=== PATIENT | female | born 1960 | race Caucasian/White ===

== ENCOUNTER 2020-11-04 14:10 | Inpatient (IN) | payer OTHER ==
[~2020-11-04] VITALS: Ht 167.6 cm; Wt 149.7 kg
--- NOTE | ~2020-11-04 | HC ---
[facility] [place] [address] CONSULTATION Name: LUI MITCHELL Room #: 457-P ADM IN M.R.#: [id number] Admission: 11/04/20 Attend Phys: Woody Morales Discharge: Date of : 56 Report #: [id number] THIS REPORT FOR: cc: Sean Mello MD, Richard C. MD Stephens, Thad A. MD ~ DATE OF SERVICE: 11/05/2020 WOUND CARE CONSULTATION PERSONAL PHYSICIAN: Dr. Sean Mello. CHIEF COMPLAINT: Bilateral lower extremity edema with gluteal ulcerations. HISTORY OF PRESENT ILLNESS: This is a 60-year-old white female who was recently left a skilled facility 3 days ago and was found by her son to be on the floor for the past 3 days covered in her own urine and feces, was brought to the Emergency Department to be admitted. The patient states now she has chronic lower extremity lymphedema and has been having therapy wrap her legs three times weekly. The patient states wraps were done approximately 4 days ago. The patient denies any open ulcerations recently. The patient states that over approximately 3 or 4 months ago, she did have weeping ulcers that were resolved after Dakin's moist gauze was used with compression wraps. The patient states she does also have 2 gluteal ulcers which have been present for several days do cause some minimal pain, but did feel better once the foam dressings are in place. The patient denies any other associated wounds at this time. PAST MEDICAL HISTORY: Significant for diabetes mellitus, chronic kidney disease, neuropathy, morbid obesity, chronic lymphedema. CURRENT MEDICATIONS: Multiple. DRUG ALLERGIES: SULFA, MORPHINE, METFORMIN AND LATEX. SOCIAL HISTORY: The patient does not smoke or drink alcohol. FAMILY HISTORY: Not pertinent to current medical condition. REVIEW OF SYSTEMS: CONSTITUTIONAL: The patient denies fevers or chills. NEUROLOGIC: The patient denies numbness, tingling, weakness in arms or legs. Does have generalized weakness. EYES: No complaints. EARS, NOSE AND THROAT: No complaints. CARDIAC: The patient has chronic lower extremity lymphedema, but no chest pain or palpitations. [facility] [address] [place] [address] CONSULTATION Name: LUI MITCHELL Room #: 457-P [facility] IN M.R.#: [id number] Admission: 11/04/20 Attend Phys: Woody Morales Discharge: Date of : 56 Report #: [id number] RESPIRATORY: The patient denies shortness of breath, cough, wheezes. GASTROINTESTINAL: The patient denies nausea, vomiting or abdominal pain. GENITOURINARY: The patient denies urgency or frequency. Fernandez catheter is in place. MUSCULOSKELETAL: No complaints. SKIN: There is bilateral gluteal ulcers. PHYSICAL EXAMINATION: VITAL SIGNS: Temperature 36.7, pulse 92, respirations 19, BP 175/88. GENERAL: This is alert and oriented x3. Morbidly obese white female who is in no acute distress. HEENT: Normocephalic, atraumatic. Mucous membranes are somewhat dry. Pupils are round. Sclerae white. NECK: Without JVD. LUNGS: Clear. HEART: Regular. ABDOMEN: Obese, soft, nontender. Underneath the abdominal pannus, there is a fungal rash with mild excoriation. Evaluation of gluteal region in the superior aspect, there are 2 small approximately 1 x 1 cm stage III decubitus ulcer, which are otherwise clean and granulating without signs of overt infection. There is minimal serosanguineous drainage noted without odor. Periwound is intact. There is no tunneling or undermining. EXTREMITIES: Evaluation of lower extremity reveals 3 to 4+ edema without weeping. There is significant hyperkeratosis to bilateral lower extremities. Distal pulses are 1+ dorsalis pedis and posterior tibial. Bilateral heels are intact. NEUROLOGIC: Cranial nerves II-XII grossly intact. Motor and sensory grossly intact. LABORATORY DATA: White count 6.8, hemoglobin 10.8, BUN 33, creatinine 1.6, albumin 2.2. IMPRESSION: 1. Chronic bilateral lower extremity lymphedema with hyperkeratosis, but no open ulcerations. 2. Stage III pressure ulcers to bilateral superior gluteal region. 3. Fungal rash beneath the abdominal pannus. 4. Type 2 diabetes mellitus. 5. Morbid obesity. 6. Generalized weakness. 7. Severe protein-calorie malnutrition with albumin of 2.2. PLAN: We will start AmLactin, Kerlix and Sai from the toes to knees daily and p.r.n. The patient to elevate her legs as much as possible. We will use heel protectors on the patient at all times for prevention. Given the fact the [address] [address] CONSULTATION Name: LUI MITCHELL Room #: 457-P ADM IN M.R.#: [id number] Admission: 11/04/20 Attend Phys: Woody Morales Discharge: Date of : 56 Report #: [id number] patient feels the bordered foam dressings have helped with her pain, she will keep those in place at this time. We will put the patient on low air loss surface, have her turned every 2 hours. We will have InterDry dressings placed beneath the abdominal pannus. PT and OT will be consulted for generalized weakness and strengthening. We will make sure we maximize the patient's oral protein supplementation for healing. We will continue all other current medications. Appreciate ability to consult. By: 1311 [id number] Erick Fonseca MD /nedra
[2020-11-04 14:11] VITALS: BP 163/73
[2020-11-04 14:48] LABS: ABSOLUTE NEUTROPHILS 5.9 thou/uL (1.4-8.2); BASOPHILS 0.7 % (0.0-2.0); EOSINOPHILS 14.3 % (0.0-3.0); HEMATOCRIT 34.6 % (37.0-47.0); HEMOGLOBIN 10.7 gm/dL (12.0-15.0); MCH 28.2 pg (26.0-34.0); MCV 91.1 fL (80.0-100.0); MONOCYTES 5.8 % (1.0-8.0); PLATELET COUNT 264 thou/uL (150-400); POLYS 65.2 % (36.0-66.0); RBC 3.79 mil/uL (4.20-5.00); RDW 16.5 % (10.5-14.5)
[2020-11-04 15:15] LABS: ALBUMIN 1.3 g/dL (3.4-5.0); ANION GAP 12 mmol/L (7-16); BUN 22 mg/dL (7-18); CHLORIDE 122 mmol/L (98-107); CO2 16 mmol/L (21-32); SGOT 17 U/L (15-37); SGPT 7 U/L (14-59); SODIUM 150 mmol/L (136-145); TOTAL BILIRUBIN 0.2 mg/dL (0.2-1.0); TOTAL PROTEIN 4.1 g/dL (6.4-8.2); TROPONIN-I <0.06 ng/mL (<0.06)
[2020-11-04 15:25] LABS: POTASSIUM 2.2 mmol/L (3.5-5.1)
[2020-11-04 15:26] LABS: GLUCOSE 39 mg/dL (74-106)
[2020-11-04 15:27] LABS: CALCIUM 5.1 mg/dL (8.5-10.1)
[2020-11-04 17:00] VITALS: BP 159/64
[2020-11-04 17:01] LABS: URINE BILIRUBIN NEGATIVE (Negative); URINE BLOOD NEGATIVE (Negative); URINE CLARITY CLEAR; URINE COLOR YELLOW; URINE GLUCOSE-RANDOM* NEGATIVE (Negative); URINE KETONES NEGATIVE (Negative); URINE LEUKOCYTES-REFLEX NEGATIVE (Negative); URINE NITRITE-REFLEX NEGATIVE (Negative); URINE PROTEIN (DIPSTICK) NEGATIVE (Negative); URINE UROBILINOGEN 0.2 E.U./dl (0.2-1.0)
--- NOTE | 2020-11-04 17:04 | NUR ---
ATTEMPTED TO CALL PT REPORT AT THIS TIME
[2020-11-04 17:29] LABS: BE(vivo) 1.3 mmol/L (-2 to +3); HCO3 25.9 mmol/L (22.0-26.0); PO2 75.9 mmHg (80.0-100.0); pH 7.419 (7.360-7.450); sO2 95.4 % (92.0-98.0)
--- NOTE | 2020-11-04 19:00 | NUR ---
Pt admitted under telemetry. Vegetable Harvest Worker notified. Vegetable Harvest Worker states no tele beds available at the moment. States provider aware and ok with patient being on this floor until tele bed becomes available later tonight.
[2020-11-04 19:32] VITALS: BP 136/64
[2020-11-04] MEDS ORDERED: GABAPENTIN PO (23:18)
[2020-11-04] MEDS ORDERED: NORCO 10-325 T1 EACH PO (23:20)
[2020-11-04] MEDS ORDERED: FLEXERIL PO (23:20)
[2020-11-04] MEDS ORDERED: LEVO-T100 MCG PO (23:21)
[2020-11-05 02:06] LABS: GLYCOHEMOGLOBIN (HGB A1C) 6.4 % (4.8-5.6)
--- NOTE | 2020-11-05 05:46 | NUR ---
Pt transferred from appropx 1999 via bed. A/OX4,VSS. Max assist with transfers/cares. C/o pain to left shoulder/arm as well as back. Has pressure sores on buttocks,very excoriated under pannus/breasts;GUILLOTINE TRIMMER Cande notified. Order for Nystatin powder. Fernandez patent to DD with yellow urine noted;states she has been incontinent of bowels lately since being hospitalized at [facility]. Fall precautions in place,encouraged to call for help as needed. SR on telemetry.
[2020-11-05 06:03] LABS: HEMOGLOBIN 10.8 gm/dL (12.0-15.0); MCHC 32.6 g/dL (28.0-37.0); RBC 3.71 mil/uL (4.20-5.00); RDW 15.4 % (10.5-14.5); WBC 6.8 thou/uL (4.0-11.0)
[2020-11-05 06:22] LABS: CALCIUM 8.4 mg/dL (8.5-10.1); CREATININE 1.6 mg/dL (0.6-1.0); POTASSIUM 5.2 mmol/L (3.5-5.1)
[2020-11-05 06:25] LABS: ALBUMIN 2.2 g/dL (3.4-5.0); MAGNESIUM 2.2 mg/dL (1.8-2.4); PHOSPHORUS 3.7 mg/dL (2.5-4.9)
[2020-11-05 07:23] VITALS: BP 175/88
[2020-11-05] MEDS ORDERED: ASA81BEC PO (07:49)
[2020-11-05] MEDS ORDERED: VITAMIN D3 COM1 EACH PO (07:51)
[2020-11-05] MEDS ORDERED: LISINOPRIL2.5 MG PO (07:52)
[2020-11-05] MEDS ORDERED: BENADRYL25 MG PO (07:53)
[2020-11-05] MEDS ORDERED: ZOFRAN4 MG PO (07:55)
--- NOTE | 2020-11-05 08:26 | NUR ---
TRANSFERRED PT TO 4W AT APPROXIMATELY 2000.
--- NOTE | 2020-11-05 09:53 | EKG ---
[place] [address] [employer] [place] [address] ELECTROCARDIOGRAM REPORT Name: MITCH MITCHELLLUI Room #: 457-P ADM IN M.R.#: [id number] Admission: 11/04/20 Attend Phys: Woody Morales Discharge: Date of : 56 Report #: [id number] [facility] Test Date: 2020-11-04 Test Time: 19:01:00 Pat Name: LUI MITCHELL Department: Room: [facility] Gender: F Adult Education Manager: FSCHWALNELL : 1960 Requested By: Fabiola Keating Order Number: [id number] MD: Lukasz Salamanca Measurements Intervals [place] Rate: 94 P: ME: QRS: 17 QRSD: 148 T: -39 QT: 410 QTc: 513 Interpretive Statements Sinus rhythm Right bundle branch block No previous ECG available for comparison Electronically Signed On 11-05-2020 9:53:19 CDT by Lukasz Salamanca [email or web address] <ELECTRONICALLY SIGNED> By: Lukasz Salamanca MD, [facility] 11/05/20 0953 1901 00 Lukasz Salamanca MD, FACC /EPI
--- NOTE | 2020-11-05 09:58 | NUR ---
RD consult. Admitted with infected wounds, buttocks and excoriation and cellulitis bilateral lower extremities. Extreme class III obesity, BMI 53.3, and hx dm, kidney cancer. A1C 6.4. On carb controlled diet, has no teeth. Poor vision so requires assist with menu ordering. Food preferences obtained. Pt with strong dislike of all oral supplements, "want to eat my protein." States allergy to all artificial sweetners. Low nutrition risk
--- NOTE | 2020-11-05 12:30 | NUR ---
PT ADMITTED RELATED TO HYPOGLYCEMIA. CM REVIEWED CHART AND SPOKE WITH CARE TEAM. CM MET WITH PT AT BEDSIDE THIS DAY. PT APPEARS TO BE A&O X4. CM ROLE INTRODUCED. PT INDICATED THAT SHE RESIDES IN A DOUBLE WIDE TRAILER WITH HER TWO SONS WITH A RAMP TO ENTER. PT INDICATED THAT SHE HAD STARTED HH SERVICES WITH [facility] HOME TUMOR REGISTRAR. PT INDICATED THAT SHE HAD BEEN AT [facility] AND HAD GONE TO [facility] AND HAD BEEN THERE UP UNTIL 3 DAYS PRIOR ADMISSION HERE. PT INDICATED SHE HAD BEEN ABLE TO TRANSFER HERSELF PRIOR TO HOSPITALIZATION TO AND FROM LIFT CHARIR, POWER CHAIR, TOILER, AND COMMODE. PT INDICATED SHE HAD ASSISTED WITH CHORES IN THE HOME. PT NOT ABLE TO BEAR WEIGHT NOW. PT NOT WANTING TO GO TO SKILLED BUT WANTING TO RETURN HOME WITH [facility] HH ONCE MEDICALLY STABLE. CM INDICATED THAT PT THAT HOSPITALIST HAD INDICATED THAT PT WOULD LIKELY BE MEDICALLY STABLE TO DC HOME WITH HH TOMORROW AND PT INDICATED THAT THE OT STATED THAT SHE WOULD SEE HER SUNDAY.. CM INDICATED CM WOULD REACH OUT TO [facility] AND INFORM THEM OF HER DESIRE TO RESUME SERVICES UPON DC. CM FOLLOWING REGARDING DC PLANNING.
--- NOTE | 2020-11-05 15:31 | NUR ---
BP 175/88 @ 0723 WITH NO BP medications on emar. She takes Lisinpril 2.5 mg @ home nurse spoke with DR. Morales. Lisinpril 2.5 mg added to mar and given. D5W d/c. BS 309 for breakfast, 369 for lunch. Sliding scale insulin given. Left arm 3+ edema and prop on pillow. PT/OT evaluated today.
[2020-11-05 15:33] VITALS: BP 138/77
--- NOTE | 2020-11-05 15:43 | NUR ---
CM FAXED CLINICAL UPDATED TO [facility] THEY ARE ABLE TO ACCEPT PT BACK UPON DC P: F: . PT WORKED WITH PT AND SHE INDICATED SHE WAS RECEPTIVE TO SKILLED POST ACUTE CARE STAY. CM PROVIDED [facility] SNF LIST FOR REVIEW. SHE INDICATED SHE NEEDED TO LOOK IT OVER WITH HER SONS. CM FOLLOWING REGARDING DC PLANNING
--- NOTE | 2020-11-05 19:36 | NUR ---
Patient has critical gram postive blood culture results for cocci in clusters in both bottles . Results called to Karine Lemon NP @ 1930. She said she will review her chart.
[2020-11-05 20:39] VITALS: BP 157/78
[2020-11-06 06:12] LABS: HEMATOCRIT 28.9 % (37.0-47.0); HEMOGLOBIN 9.2 gm/dL (12.0-15.0); MCH 28.4 pg (26.0-34.0); MCHC 31.8 g/dL (28.0-37.0); MCV 89.3 fL (80.0-100.0); RBC 3.24 mil/uL (4.20-5.00); RDW 15.5 % (10.5-14.5); WBC 7.8 thou/uL (4.0-11.0)
[2020-11-06 06:36] LABS: ALBUMIN 2.1 g/dL (3.4-5.0); CALCIUM 8.3 mg/dL (8.5-10.1); CREATININE 1.5 mg/dL (0.6-1.0); PHOSPHORUS 2.5 mg/dL (2.5-4.9); POTASSIUM 4.4 mmol/L (3.5-5.1)
[2020-11-06 07:55] VITALS: BP 151/76
--- NOTE | 2020-11-06 08:07 | NUR ---
Assumed pt care at 1900. A/OX4,pleasant. C/o pain to left shoulder,medicated per EMAR with some relief reported,ice provided as well. VSS. New PIV inserted on right hand with 2 attempts,IVF infusing w/o problems. Wound care done to pannus/breasts interdry fabric applied. Fernandez in place to DD with yellow urine/sediments. Fall precautions in place,calls approp for help. NSR on telemtry.
--- NOTE | 2020-11-06 08:30 | NUR ---
PT LYING IN BED AT THIS TIME. PT BED BOUND. PT NEEDS ASSISTANCE WITH OPENING ITEMS ON HER TRAY, PT STATED HER SON CHEO 07/02/20 DUE TO TUMOR IN HIS BRAIN, SHE SAID HE HAD SOME SWELLING TO HIS BRAIN, PT STATED SHE HAS 4 BOYS, HER YOUNGEST BOY TAKES CARE OF HER AT HOME. PT HAS CESAR TO DD WITH CLEAR YELLOW URINE. PT HAS BILATERAL WRAPS TO EXT DUE TO SWELLING. PT STATED SHE HAS CELLULITIS TO LEFT ARM. PT TELE IS SR RATE OF 77. PT STATED SHE WAS AT [facility] IN [place] AND SHE WAS NOT PROGRESSING AND WAS SENT HOME. PT STATED SHE WAS AT [facility] AND WAS THERE 3 DAYS, SHE SAID THEY DIDN'T DO ANYTHING TO HELP HER. PT SAID SHE ENDED UP HERE. PT STATED SHE WAS ON LASIX AND DIDN'T NOW WHY SHE WAS OFF. PT WEIGHT THIS AM IS 330.6 SHE SAID HER WT HAS NOT DECREASED.
--- NOTE | 2020-11-06 14:53 | NUR ---
ADM HYDROCODONE 5MG PO FOR PAIN TO LEFT ARM AND ALSO FLEXERIL 10MG PO FOR COMPLAINTS OF MUSCLE SPASMS TO LEFT ARM. ELEVATED ARM ON PILLOWS.
[2020-11-06 17:47] VITALS: BP 157/76
[2020-11-06 19:00] VITALS: BP 164/77
--- NOTE | 2020-11-07 01:12 | NUR ---
PT ALERT AND ORIENTED X4. VSS, AFEBRILE. MEDICATING FOR C/O LEFT UPPER EXTREMITY PAIN PRN. WOUND CARE COMPLETED TO L AND R LE AND L AND R BUTTOCKS. ORDERED. BED DOWN CALL LIGHT IN REACH. NO S/S DISTRESS.CALL LIGHT IN REACH BED ALARM ON. NOTIFIED SILK FINISHER AUDI OF HEMATURIA NOTED IN 2500 ML IN CESAR. HELD LOVENOX TONIGHT ORDERED. WILL HAVE DAY SHIFT NS ADDRESS WITH IN AM REQUESTED BY SILK FINISHER. WILL CONTINUE TO MONITOR PT FOR CHANGES,
[2020-11-07 05:32] VITALS: BP 162/90
--- NOTE | 2020-11-07 06:07 | NUR ---
PT PROGRESINGSLOWLY TOWARDS D/C GOALS. BP MODERTELY ELEVTED. NOTIFIED SPACE SYSTEMS OPERATIONS MANAGER. DAY SHIFT DR TO ADDRESS BP .
--- NOTE | 2020-11-07 06:08 | NUR ---
PT C/O LEFT ARM PAIN AGAIN THIS AM . IT IS ELEVATED ON 2 PILLOW. PAIN PILL GIVEN. SHEIS RESTING QUIETLY PRESENTLY. NO S/S DISTRESS.
[2020-11-07 06:19] LABS: ALBUMIN 2.2 g/dL (3.4-5.0); CALCIUM 8.3 mg/dL (8.5-10.1); CREATININE 1.2 mg/dL (0.6-1.0); PHOSPHORUS 2.5 mg/dL (2.5-4.9); POTASSIUM 4.1 mmol/L (3.5-5.1)
[2020-11-07 07:23] VITALS: BP 169/85
--- NOTE | 2020-11-07 12:25 | NUR ---
ASSUMED PT CARE THIS AM. PT A&OX3, ABLE TO MAKE NEEDS KNOWN. IV BECAME INFILTRATED SO NEW IV STARTED WITH IV TEAM USING ULTRASOUND. MEDICATIONS TAKEN PO AND IV WITHOUT ISSUE.PATIENT HAS EDEMA NOTED TO THE LEFT ARM, ELEVATED THIS ARM IN BED. PATIENT HAS A CESAR CATHETER DRAINING DARK YELLOW URINE. PATIENT REFUSED WOUND CARE TO HER GLUTEAL WOUNDS. WOUND CARE COMPLETED TO BILATERAL LOWER EXTREMETIES. PATIENT COMPLAINS OF PAIN IN THE LEFT ARM, GAVE PAIN MEDS PER EMAR. PATIENT IS ON A LOW AIRLOSS MATTRESS. FALL PRECAUTIONS ARE IN PLACE, CALL LIGHT WITHIN REACH.
[2020-11-07 15:48] VITALS: BP 166/74
[2020-11-07 20:21] VITALS: BP 166/78
--- NOTE | 2020-11-08 02:33 | NUR ---
PT CARE ASSSUMED at 1900 PT IN BED WATCHING TV.PT IS ON BEDREST .PT IS A/O X3.PT IS INCONTINENT AND HAS A CESAR CATHETER IN PLACE.PT C/O PAIN ON LT UE AND PAIN MANAGED WITH NORCO.PT C/O PAIN AND ASKED TO SIT AT BEDSIDE AND SHE CALMED DOWN.PT HAS LYPHEDEMA WRAP ON BLE IN PLACE.WILL CONTINUE TO MONITOR PER POC
[2020-11-08 07:19] VITALS: BP 178/87
--- NOTE | 2020-11-08 13:53 | NUR ---
CM MET WITH PT AT BEDSIDE THIS DAY. PT WASN'T COMMITAL TO SKILLED OF YET. PT INDICATED SHE WANTED TO SEE HOW SHE DID WITH THERAPY AND MAY STILL DECIDE TO RETURN HOME WITH HH. CM INDICATED THAT'S FINE BUT IF IN THE EVENT PT DECIDES ON GOING SKILLED WE NEED TO SEND SOME INFO TO SNFS FOR REVIEW FOR POSSIBLE ADMISSION. PT WAS AGREEABLE TO HAVING REFERRAL SENT TO [facility]. REFERRAL SENT. CM FOLLOWING REGARDING DC PLANNING.
--- NOTE | 2020-11-08 15:52 | NUR ---
ASSUMED CARE OF PT AT 0700 THIS MORNING. PT WAS ADMITTED FOR HYPOGLYCEMIA, CELLULITIS AND LYMPHADEMIA IN THE LT ARM. PT HAS PITTING EDEMA IN LT ARM FROM MIDHUMORUS TO FINGERS AND BILAT LEGS. LEGS ARE WRAPPED WITH JHONATAN WRAPS WITH KERLEX AND ABD PADS. LT ARM IS ELEVATED. CESAR IN PLACE WITH CLEAR YELLOW URINE. ABD OBESE, SOFT NONTENDER. ASSESSMENTS CHARTED AND OTHERWISE UNREMARKABLE. IV IN RT FA WITH SL. CALL LIGHT AND OTHER NEEDS ARE WITHIN REACH.MEDS AND TX GIVEN NEEDED AND SCHEDULED. WILL CONTINUE TO MONITOR AND NOTE ANY CHANGES.
[2020-11-08 16:39] VITALS: BP 184/92
[2020-11-08 19:51] VITALS: BP 187/105
[2020-11-08 23:30] VITALS: BP 177/80
[2020-11-09 02:51] LABS: HEMOGLOBIN 10.6 gm/dL (12.0-15.0); MCH 28.7 pg (26.0-34.0); MCV 86.9 fL (80.0-100.0); RBC 3.68 mil/uL (4.20-5.00); RDW 15.7 % (10.5-14.5); WBC 8.2 thou/uL (4.0-11.0)
[2020-11-09 03:17] LABS: CALCIUM 8.5 mg/dL (8.5-10.1); CREATININE 1.1 mg/dL (0.6-1.0); POTASSIUM 3.5 mmol/L (3.5-5.1)
[2020-11-09 04:50] VITALS: BP 186/92
--- NOTE | 2020-11-09 05:48 | NUR ---
PT C/O LEFT ARM AND BACK PAIN. PRN HYDROCODONE GIVEN. PT HAD 2 BOWEL MOVEMENTS DURING THE NIGHT. SHE REFUSED TURNS. BP ELEVATED. NOTIFIED SHIPPING ROOM SUPERVISOR SWITCH ADJUSTER FOR HOSPITALIST. PRN HYDRALAZINE GIVEN FOR HTN. PROGRESSING SLOWLY TOWARD POC GOALS. WILL MONITOR FURTHER.
--- NOTE | 2020-11-09 14:53 | NUR ---
ASSUMED PT CARE THIS AM. PT A&OX3-4, ABLE TO MAKE NEEDS KNOWN. PATIENT CAN BE FORGETFUL OF SITUATION. PATIENT WOUND CARE WAS COMPLETED BY NURSE AND OT COMPLETED LYMPHEDEMA WRAPS TO BILATERAL LOWER EXTREMETIES. PATIENT HAS A CESAR CATHETER. PHYSICIAN ORDERED AN ULTRASOUND OF THE LEFT ARM THIS SHIFT DUE TO SWELLING AND THE PATIENT HAVING DIFFICULTY MOVING IT. NEW IV PLACED BY IV TEAM THIS SHIFT. FALL PRECAUTIONS ARE IN PLACE, CALL LIGHT WITHIN REACH. PATIENT REPORTS ABDOMINAL CRAMPS AND NAUSEA, GAVE ZOFRAN AND PAIN MEDS PER EMAR. PHYSICIAN NOTIFIED OF THIS ISSUE, NO NEW ORDERS RECEIVED.
[2020-11-09 16:39] VITALS: BP 197/91
--- NOTE | 2020-11-09 16:52 | NUR ---
[facility] HAS NO BEDS. CM FAXED REFERRAL TO [facility] FOR REVIEW FOR POSSIBLE ADMISSION.
[2020-11-09 21:34] VITALS: BP 197/68
[2020-11-10 03:15] VITALS: BP 208/115
--- NOTE | 2020-11-10 03:20 | NUR ---
ASSUMED PT CARE AT 1920. PT IS ALERT AND OREINTED X4. PT C/O GENERALIZED ABD PAIN WHICH PT CLAIMED STARTED AFTER GETTING MIRALAX. PT CLAIMS CURRENT PRN PAIN MEDS ARE NOTE EFFCETIVE AND WOULD LIKE SOMETHING STRONGER. PT'S BP HAS BEEN IN THE 190'S AND BY PT" BP HAS BEEN HIGH SINCE THE OF SON IN AUGUST". PT HAS KERLIX ON BLE WHICH IS D/I. PT HAS A CESAR IN PLACE. PT HAD A BM. FALL PRECAUTIONS IN PLACE WITH CALL LIGHT WITHIN REACH. WILL CONTINUE TO MONITOR.
--- NOTE | 2020-11-10 14:10 | NUR ---
BEAU IN ADMISSIONS AT [facility] INDICATED THAT THEY CAN ACCPET PT MEDICLLY. CM NOTIFIED PT THIS AM. SHE INDICATED SHE WAS STILL WAITING TO HEAR BACK FROM HER FRIEND OBIE OR HER CUTTER OPERATOR TILE. CM ASKED THAT SHE TRY TO SPEAK TO THEM CHERYL WE NEED TO FIND PLACEMENT. CM AWAITING PT'S DETERMINATION.
[2020-11-10 16:10] VITALS: BP 141/79
--- NOTE | 2020-11-10 16:40 | NUR ---
ASSUMED CARE OF PATIENT AT SHIFT CHANGE. ASSESSMENT CHARTED. MEDICATIONS ADMINISTERED PER JUN W NO ISSUES. PATIENT IS A&OX4 AND MAKES NEEDS KNOWN. PATIENT VOICES DISCOMFORT AND AN OVERALL FEELING OF MALAISE. PATIENT STATES "THE MIRALAX SHE TOOK THE OTHER DAY MESSED ME UP" AND VOICES NOT BEING INCONTINENT PRIOR TO TAKING THE MIRALAX. PROVIDER IS AWARE AND PROVIDED PATIENT EDUCATION ON LETTING THE MIRALAX RUN ITS COURSE OUT OF HER SYSTEM. PATIENT GIVEN PAIN MEDS PROVIDING SOME RELIEF TO HER GENERALIZED AND ABDOMINAL PAIN. PATIENT IS BEING REPOSITIONED AT LEAST EVERY 2 HOURS TOLERATED & NEEDED. CESAR IN PLACE AND PATENT. DISCHARGE DATE SOON; HOWEVER PATIENT DOES NOT FEEL SHE IS READY. POOR APPETITE NOTED HOWVEVER FSBS REMAIN ELEVATED. FALL PRECAUTIONS IN PLACE. AWAITING NEW ORDERS AND PROVIDING FREQUENT MONITORING
[2020-11-10 20:02] VITALS: BP 110/56
--- NOTE | 2020-11-11 03:10 | NUR ---
PT CARE ASSUMED WITH PT IN BED WATCHING TV.PT IS A/O X4.PT IS BEDREST AND CALLS OUT FOR HELP APPRIOPRIETELY.IV ACCESS IN RFA SL.PT IS ACCUCHECK ACHS .PT C/O ABD PAIN AND LT HAND PAIN.PT HAD A BM DURING SHIFT.PT HAS A CESAR IN PLACE.WILL CONTINUE TO MONITOR
[2020-11-11 08:08] VITALS: BP 154/75
--- NOTE | 2020-11-11 16:38 | NUR ---
Spoke with pt today, main concern is the visiting policy [facility]. Pt will need to quaratine in her room for 14 days, but they allow 2 visitors per day for 30 minute visits in her room, this has to be scheduled since pt is a new admit. Relayed this to the pt she was ok with this but expressed another concern regarding the possibility that her income may be taken away. Request sent to facility awaiting auth.
[2020-11-11 17:07] VITALS: BP 150/67
--- NOTE | 2020-11-11 17:47 | NUR ---
FAXED SNF REFERRAL WITH NEGATIVE COVID RESULT (11/04/20) TO [facility]. WILL CONFIRM THEY RECEIVED AND BED AVAILABILITY. [facility] P [phone]; FAX [phone]
--- NOTE | 2020-11-11 18:34 | NUR ---
Patient has had pain most the day in her left arm/hand. [place] given 3x today for pain. Reji Pabon Dr. came and mesured her left hand and arm to be fitted for a sleeve. He has to order it and is aware she will d/c to [facility] and send it there if shes no longer here. Bilateral legs- ammonium appiled.
[2020-11-11 19:23] VITALS: BP 157/71
--- NOTE | 2020-11-12 06:43 | NUR ---
Assumed pt care at 1900. A/OX4,VSS. C/o pain to left arm,medicated for pain with relief reported,arm immobilized with a pillow;arm is swollen and warm to touch. Fernandez in place with dark yellow urine,poor PO intake encouraged but hesitant to. Fall precautions in place.
[2020-11-12 07:51] VITALS: BP 152/61
--- NOTE | 2020-11-12 09:48 | NUR ---
SPOKE TO SANA/LIAISON AT [facility]. THEY WILL NOT HAVE ANY BEDS UNTIL NEXT WEEK. WILL NOTIFY GEOVANI/SHAPER HAND OF STATUS AND OTHER FACILITIES.
--- NOTE | 2020-11-12 11:05 | NUR ---
Patient A/O x 4. Room air. Bed Bound. 3+ edema in left hand/arm. Pain noted in left arm 09/23. [place] given @ 0835. Intradry placed under pannus and bilateral breasts. Refused breakfast, she only wanted crackers. Fernandez patent-urine is dark lidia and foul smelling. OT worked with her this morning.
--- NOTE | 2020-11-12 11:21 | NUR ---
Spoke to pt today, informed her that [facility] at this time does not have beds. Option for [facility] was give, pt refuses to go due to visitor policy of the facility. Mentioned that dc is planned for today of [facility] is not an option pt will have to go home. Pt state she will call her sons for "ideas". Will follow up with the pt in an hour for final decision.
--- NOTE | 2020-11-12 12:05 | NUR ---
Nutrition followup: pt continues on , followed by wound care. Gluteal wounds listed as stage 3. Pt had been eating well up until last 2 days po has declined. Offered to assist pt with meal ordering, food preferences. states nothing sounds good. Still not willing to try supplements. Understands protein needs. RD offered strong encouragement to pt to push self, proteins first etc. Voiced understanding. Awaiting insurance authorization for likely discharge today.
--- NOTE | 2020-11-12 12:14 | NUR ---
Nutrition: Recommend daily MVI, zinc sulfate, ascorbic acid to assist with wound healing.
[2020-11-12 14:54] VITALS: BP 152/69
[2020-11-12] MEDS ORDERED: NORVASC10 MG PO (15:42)
[2020-11-12] MEDS ORDERED: LISINOPRIL20 MG PO (15:43)
[2020-11-12] MEDS ORDERED: LANTUS SUBQ (15:44)
[2020-11-12 16:46] VITALS: BP 152/69
--- NOTE | 2020-11-12 16:59 | NUR ---
FAXED DISCHARGE ORDERS, SUMMARY, PT/OT PROGRESS NOTES (11/12) AND NEGATIVE COVID RESULT (11/04/20) TO [facility]. CONFIRMED WITH KATE/SA[facility] THAT PATIENT HAD SERVICES WITH THEM BEFORE AND HAVE ACCEPTED AND WILL PROVIDE NURSING, OT/PT SERVICES. THEY WILL CONTACT PATIENT THIS WEEKEND TO SCHEDULE. [facility] P [phone]; FAX [phone]
--- NOTE | 2020-11-12 17:19 | NUR ---
Mayra visited with Nani via phone call, verified she has no stairs at home, and someone will be there to help her when she gets home. Will need stretcher bariatric, van r/t unable to support self in wheelchair. She c/o of pain during phone call, mayra passed on information to bedside nurse. Spoke with [facility], 1st avaible transportation time will be between 9-10pm. MAYRA passed on time to bedside nurse. If her dc changes for any reason, please call and canceled transportation # [phone]
--- NOTE | 2020-11-13 02:03 | NUR ---
PATIENT LEFT AROUND 2029 ACCOMPANIED BY TWO DRIVERS.PATIENT LEFT VIA [facility]. HOME MEDS GIVEN TO THE PATIENT FROM THE PHARMACY. HS MED GIVEN. PAIN MEDS GIVEN PER DRS. PAVON.DISCHARGE PAPER WORK GIVEN.PER REPORT OFF GOING NURSE DID DISCHARGE TEACHING. THIS NURSE ALSO DID DISCHARGE TEACHING AND PATIENT WAS EDDUCATED TO MAKE AN APPOINTMENT TO SEE PCP AND WENT THROUGH HOME MEDS, PATIENT IS FAMILIAR WITH ALL HER HOME MEDS.
--- NOTE | 2020-11-13 07:51 | NUR ---
FAXED UPDATED DISCHARGE ORDERS, SUMMARY AND WOUND CARE PROGRESS NOTES TO [facility]. (ORGINAL ORDERS DID NOT HAVE ORDER FOR HOME HEALTH.) CONTACTED DEWEY (SON) VERIFYING TIME PATIENT TO BE DISCHARGED AND THAT THERE WILL BE SOMEONE AT THE HOUSE. SON STATED HE WOULD BE THERE AND AN OLDER BROTHER. CONCERNED HIS MOTHER MAY NEED JACK FRAME TENDER CARE EVENTUALLY BECAUSE THEY WERE NOT ABLE TO CARE FOR ALL OF HER NEEDS. DISCUSSED WITH ELECTRIC MOTORMAN. [facility] P [phone]; FAX [phone]
== END 2020-11-12 20:30 | disposition home health service (06) | DRG 917 ==
LOC: ER 14:10 → 4W 17:50 → EROBS 17:50 → 4S 17:57 → 4W 21:00
PROVIDERS: Hospitalist; Nurse Practitioner Family; ADMIT Hospitalist; ATTEND Hospitalist
DX: T38.3X1A Poisoning by insulin and oral hypoglycemic [antidiabetic] drugs, accidental (unintentional), initial encounter (principal); L89.323 Pressure ulcer of left buttock, stage 3; L89.313 Pressure ulcer of right buttock, stage 3; E43 Unspecified severe protein-calorie malnutrition; B37.89 Other sites of candidiasis; Z68.43 Body mass index [BMI] 50.0-59.9, adult; E11.649 Type 2 diabetes mellitus with hypoglycemia without coma; E66.01 Morbid (severe) obesity due to excess calories; Z20.822 Contact with and (suspected) exposure to COVID-19; E11.40 Type 2 diabetes mellitus with diabetic neuropathy, unspecified; M19.90 Unspecified osteoarthritis, unspecified site; E87.6 Hypokalemia; E83.51 Hypocalcemia; N18.9 Chronic kidney disease, unspecified; E11.22 Type 2 diabetes mellitus with diabetic chronic kidney disease; I12.9 Hypertensive chronic kidney disease with stage 1 through stage 4 chronic kidney disease, or unspecified chronic kidney disease; I89.0 Lymphedema, not elsewhere classified; L85.9 Epidermal thickening, unspecified; H16.423 Pannus (corneal), bilateral; R53.81 Other malaise; Z79.899 Other long term (current) drug therapy; Z88.2 Allergy status to sulfonamides; Z88.8 Allergy status to other drugs, medicaments and biological substances; Z88.6 Allergy status to analgesic agent; Z91.040 Latex allergy status; Y92.89 Other specified places as the place of occurrence of the external cause
CPT/HCPCS: 10045

== ENCOUNTER 2020-11-18 14:15 | Inpatient (IN) | payer OTHER ==
[~2020-11-18] VITALS: Ht 167.6 cm; Wt 132.6 kg
--- NOTE | ~2020-11-18 | EMS ---
[address] [address] EMS Patient Care Report Name: LUI MITCHELL Room #: 245-P ADM IN M.R.#: [id number] Admission: 11/18/20 Attend Phys: Karthikeyan Sheikh MD Discharge: Date of : 56 Report #: [id number] THIS REPORT FOR: //name// Report Transmitted: 11/19/2020 08:39 EMS Care Summary [facility] Incident [id number] @ 11/18/2020 13:20 Incident Location [address] [place] [address] Patient GAYE MITCHELL Female, 60 Years 1960 Patient Address [address] [place] [address] Patient History Diabetes,Urinary Tract Infection (UTI),Chronic Pain, Patient Allergies Latex allergy,Sulfonamides allergy,Morphine,Metformin, Patient Medications Cyclobenzaprine, Amlodipine, Aspirin, Hydrocodone, Lantus, Levothyroxine, Benadryl, Lisinopril, Chief Complaint confusion Disposition Transported No Lights/[place] Reason Sick Person Transported To [facility] Narrative Medic 43 met with Archie Brady on scene of a patient with confusion. Patient was alert to self and place but was unable to give definitive answers to other questions. Patient was assessed by Archie prior to [facility] arrival and [address] [address] EMS Patient Care Report Name: LUI MITCHELL Room #: 245-P [facility] IN ..#: [id number] Admission: 11/18/20 Attend Phys: Karthikeyan Sheikh MD Discharge: Date of : 56 Report #: [id number] found patient sinus tach on monitor, BP normal and chronic back pain. Patient was recently in hospital and had an IV infiltrate in right arm, right arm was painful to the touch and movement. A CCSS was performed with no findings, patient did not have facial droop or slurred speech, was unable to fully complete the stroke scale due to right arm pain and lower extremity weakness and immobility. Patient was in a hospital type bed in home residence. Patient has bandages on both lower legs to help with swelling, patients feet had toenail fungus on all toes bilateral. Patient was reassessed with no new findings with vitals. Patient was placed onto the stretcher with a drawl sheet, patient was secured with straps for transport. Stretcher was loaded into ambulance and secured, all moves were done without incident. Patient was monitored during transport with no additional findings to report. Verbal report was given to RN during patient care transfer for MD assessment. Initial Vitals @13:43P: 116,R: 20,BP: 139/64,Pain: 4/10,GCS: 14,SpO2: 96,Revised Trauma: 12,[place] Suspected: false @13:56P: 121,R: 19,BP: 123/88,Pain: 4/10,GCS: 14,SpO2: 95,Revised Trauma: 12,IL Suspected: false @PTAP: 110,R: 20,BP: 117/55,Pain: 4/10,GCS: 14,Glucose: 112,SpO2: 96,Revised Trauma: 12,[place] Suspected: false Assessments @13:31MENTAL:Place Oriented,Person Oriented,Confused,SKIN:Diaphoresis,HEENT:Head/Face: No Abnormalities,Neck/Airway: No Abnormalities,LUNG SOUNDS:General: Other,ABDOMEN:General: Other,PELVIS//GI:No Abnormalities,EXTREMITIES:Capillary Refill: Right Upper: < 2 Sec,Right Leg: Weakness,Left Leg: Weakness,Left Arm: Other,Right Arm: No Abnormalities,PULSE:Radial: 2+ Normal,NEURO:No Abnormalities,@13:50MENTAL:Person Oriented,Confused,Place Oriented,SKIN:Diaphoresis,HEENT:Head/Face: No Abnormalities,Neck/Airway: No Abnormalities,LUNG SOUNDS:General: Other,ABDOMEN:General: Other,PELVIS//GI:No Abnormalities,EXTREMITIES:Left Arm: Other,Left Leg: Weakness,Right Leg: Weakness,Capillary Refill: Right Upper: < 2 Sec,Right Arm: No Abnormalities,PULSE:Radial: 2+ Normal,NEURO:No Abnormalities, Impression Urinary Tract Infection (UTI) Procedures @13:31ALS AssessmentResponse: UnchangedSucceeded@13:32Saline Lock 0cc (24 ga) Site: Hand-RightResponse: UnchangedFailed@13:423-Lead ECGResponse: [place] [address] EMS Patient Care Report Name: OLGA MITCHELLLINE Room #: 245-P ADM IN M.R.#: [id number] Admission: 11/18/20 Attend Phys: Karthikeyan Sheikh MD Discharge: Date of : 56 Report #: [id number] 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 This EMS Care Summary contains data elements from the applicable legal record (which may be displayed differently). It is designed to provide pertinent information for the following purposes: continuity of care, clinical quality, and state data reporting. The complete legal record is available to ED staff and administrators of the receiving hospital in ES's Patient Tracker. All data is provided "as is."
--- NOTE | ~2020-11-18 | EMS ---
[address] [address] EMS Patient Care Report Name: LUI MITCHELL Room #: 459-P [facility] IN M.R.#: [id number] Admission: 11/18/20 Attend Phys: Karthikeyan Sheikh MD Discharge: 11/25/20 Date of : 56 Report #: [id number] THIS REPORT FOR: //name// Report Transmitted: 11/27/2020 19:20 EMS Care Summary [facility] Incident [id number] @ 11/18/2020 13:20 Incident Location [address] [place] [address] Patient GAYE MITCHELL Female, 60 Years 1960 Patient Address [address] [place] [address] Patient History Diabetes,Urinary Tract Infection (UTI),Chronic Pain, Patient Allergies Latex allergy,Sulfonamides allergy,Morphine,Metformin, Patient Medications Cyclobenzaprine, Amlodipine, Aspirin, Hydrocodone, Lantus, Levothyroxine, Benadryl, Lisinopril, Chief Complaint confusion Disposition Transported No Lights/[place] Reason Sick Person Transported To [facility] Narrative Medic 43 met with Archie Brady on scene of a patient with confusion. Patient was alert to self and place but was unable to give definitive answers to other questions. Patient was assessed by Archie prior to [facility] arrival and [address] [address] EMS Patient Care Report Name: LUI MITCHELL Room #: 459-P [facility] IN M.R.#: [id number] Admission: 11/18/20 Attend Phys: Karthikeyan Sheikh MD Discharge: 11/25/20 Date of : 56 Report #: [id number] found patient sinus tach on monitor, BP normal and chronic back pain. Patient was recently in hospital and had an IV infiltrate in right arm, right arm was painful to the touch and movement. A CCSS was performed with no findings, patient did not have facial droop or slurred speech, was unable to fully complete the stroke scale due to right arm pain and lower extremity weakness and immobility. Patient was in a hospital type bed in home residence. Patient has bandages on both lower legs to help with swelling, patients feet had toenail fungus on all toes bilateral. Patient was reassessed with no new findings with vitals. Patient was placed onto the stretcher with a drawl sheet, patient was secured with straps for transport. Stretcher was loaded into ambulance and secured, all moves were done without incident. Patient was monitored during transport with no additional findings to report. Verbal report was given to RN during patient care transfer for MD assessment. Initial Vitals @13:43P: 116,R: 20,BP: 139/64,Pain: 4/10,GCS: 14,SpO2: 96,Revised Trauma: 12,[place] Suspected: false @13:56P: 121,R: 19,BP: 123/88,Pain: 4/10,GCS: 14,SpO2: 95,Revised Trauma: 12,[place] Suspected: false @PTAP: 110,R: 20,BP: 117/55,Pain: 4/10,GCS: 14,Glucose: 112,SpO2: 96,Revised Trauma: 12,[place] Suspected: false Assessments @13:31MENTAL:Confused,Person Oriented,Place Oriented,SKIN:Diaphoresis,HEENT:Head/Face: No Abnormalities,Neck/Airway: No Abnormalities,LUNG SOUNDS:General: Other,ABDOMEN:General: Other,PELVIS//GI:No Abnormalities,EXTREMITIES:Left Arm: Other,Left Leg: Weakness,Right Leg: Weakness,Capillary Refill: Right Upper: < 2 Sec,Right Arm: No Abnormalities,PULSE:Radial: 2+ Normal,NEURO:No Abnormalities,@13:50MENTAL:Confused,Person Oriented,Place Oriented,SKIN:Diaphoresis,HEENT:Head/Face: No Abnormalities,Neck/Airway: No Abnormalities,LUNG SOUNDS:General: Other,ABDOMEN:General: Other,PELVIS//GI:No Abnormalities,EXTREMITIES:Left Arm: Other,Left Leg: Weakness,Right Leg: Weakness,Capillary Refill: Right Upper: < 2 Sec,Right Arm: No Abnormalities,PULSE:Radial: 2+ Normal,NEURO:No Abnormalities, Impression Urinary Tract Infection (UTI) Procedures @13:31ALS AssessmentResponse: UnchangedSucceeded@13:32Saline Lock 0cc (24 ga) Site: Hand-RightResponse: UnchangedFailed@13:423-Lead ECGResponse: UnchangedSucceeded Timeline [address] [address] EMS Patient Care Report Name: OLGA MITCHELLLINE Room #: 459-P DIS IN M.R.#: [id number] Admission: 11/18/20 Attend Phys: Karthikeyan Sheikh MD Discharge: 11/25/20 Date of : 56 Report #: [id number] 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,BP: 117/55 M,PULSE: 110,RR: 20 R,SPO2: 96 Ox,ETCO2: ,B,PAIN: 4,GCS: 14, 13:19,Call Received 13:19,Psap Call 13:20,Dispatched 13:21,En Route 13:30,On Scene 13:31,At Patient 13:31,ALS Assessment,Response: UnchangedSucceeded, 13:32,Saline Lock 0cc 24 ga Site: Hand-Right,Response: UnchangedFailed, 13:42,3-Lead ECG,Response: UnchangedSucceeded, 13:43,BP: 139/64 M,PULSE: 116,RR: 20 R,SPO2: 96 Ox,ETCO2: ,BG: ,PAIN: 4,GCS: 14, 13:47,Depart Scene 13:56,BP: 123/88 M,PULSE: 121,RR: 19 R,SPO2: 95 Ox,ETCO2: ,BG: ,PAIN: 4,GCS: 14, 14:05,At Destination 14:43,Call Closed Disclaimer v1.1 Copyright 2020 [employer] This EMS Care Summary contains data elements from the applicable legal record (which may be displayed differently). It is designed to provide pertinent information for the following purposes: continuity of care, clinical quality, and state data reporting. The complete legal record is available to ED staff and administrators of the receiving hospital in ES's Patient Tracker. All data is provided "as is."
[~2020-11-18 14:15] MED LIST: ASA81BEC PO; BENADRYL25 MG PO; FLEXERIL PO; GABAPENTIN PO; LANTUS SUBQ; LEVO-T100 MCG PO; LISINOPRIL2.5 MG PO; LISINOPRIL20 MG PO; NORCO 10-325 T1 EACH PO; NORVASC10 MG PO; VITAMIN D3 COM1 EACH PO; ZOFRAN4 MG PO
[2020-11-18 14:16] VITALS: BP 94/47
--- NOTE | 2020-11-18 14:45 | NUR ---
IV TEAM AT BEDSIDE
[2020-11-18 15:06] LABS: ABSOLUTE NEUTROPHILS 7.3 thou/uL (1.4-8.2); BASOPHILS 0.7 % (0.0-2.0); EOSINOPHILS 4.4 % (0.0-3.0); HEMATOCRIT 32.7 % (37.0-47.0); HEMOGLOBIN 10.7 gm/dL (12.0-15.0); LYMPHOCYTES 8.1 % (24.0-44.0); MCH 28.7 pg (26.0-34.0); MCHC 32.7 g/dL (28.0-37.0); MONOCYTES 5.4 % (1.0-8.0); PLATELET COUNT 444 thou/uL (150-400); POLYS 81.4 % (36.0-66.0); RBC 3.71 mil/uL (4.20-5.00); RDW 16.3 % (10.5-14.5)
[2020-11-18 15:17] LABS: ANION GAP 13 mmol/L (7-16); BUN 79 mg/dL (7-18); CALCIUM 8.8 mg/dL (8.5-10.1); CHLORIDE 98 mmol/L (98-107); CO2 23 mmol/L (21-32); CREATININE 7.6 mg/dL (0.6-1.0); GLUCOSE 71 mg/dL (74-106); POTASSIUM 4.2 mmol/L (3.5-5.1); SODIUM 134 mmol/L (136-145)
[2020-11-18 15:27] LABS: SGOT 22 U/L (15-37); SGPT 20 U/L (30-65); TOTAL PROTEIN 7.2 g/dL (6.4-8.2); TROPONIN-I <0.06 ng/mL (<0.06)
[2020-11-18 16:54] LABS: AMP/METHAMP Negative (Negative); BARBITURATES Negative (Negative); BENZODIAZEPINES Negative (Negative); COCAINE Negative (Negative); METHADONE Negative (Negative); OPIATES POSITIVE (Negative); PCP Negative (Negative)
--- NOTE | 2020-11-18 20:07 | EKG ---
[place] [address] [facility] [place] [address] ELECTROCARDIOGRAM REPORT Name: LUI MITCHELL Room #: 170-2 ADM IN M.R.#: [id number] Admission: 11/18/20 Attend Phys: Karthikeyan Sheikh MD Discharge: Date of : 56 Report #: [id number] [facility] ED Test Date: 2020-11-18 Test Time: 15:04:02 Pat Name: LUI MITCHELL Department: Room: 170 Gender: F Estimator Project Manager: kasey : 1960 Requested By: Manuela Ludwig Order Number: [id number] MD: Lukasz Salamanca Measurements Intervals [place] Rate: 113 P: 43 [place]: 142 QRS: 25 QRSD: 140 T: -27 QT: 370 QTc: 508 Interpretive Statements Sinus tachycardia Right bundle branch block Baseline wander in lead(s) V2 Compared to ECG 11/04/2020 19:01:00 Rate has increased Electronically Signed On 11-18-2020 20:06:57 CDT by Lukasz Salamanca [email or web address] <ELECTRONICALLY SIGNED> By: Lukasz Salamanca MD, [facility] 11/18/202005 1504 1504 Lukasz Salamanca MD, [facility] /EPI
[2020-11-18 20:30] LABS: URINE BILIRUBIN NEGATIVE (Negative); URINE BLOOD 3+ (Negative); URINE GLUCOSE-RANDOM* NEGATIVE (Negative); URINE KETONES 1+ (Negative); URINE NITRITE-REFLEX NEGATIVE (Negative); URINE PROTEIN (DIPSTICK) 2+ (Negative); URINE SPECIFIC GRAVITY 1.025 (1.005-1.035); URINE UROBILINOGEN 0.2 E.U./dl (0.2-1.0)
[2020-11-18 20:31] LABS: URINE LEUKOCYTES-REFLEX 3+ (Negative)
[2020-11-18 20:32] LABS: URINE COLOR YELLOW
[2020-11-18 20:33] LABS: URINE CLARITY TURBID
[2020-11-18 20:47] LABS: SQUAMOUS 0-3 Few /LPF (0-3); URINE WBC-REFLEX >25 Many /HPF (0-5)
[2020-11-18 20:49] LABS: BACTERIA-REFLEX >30 Many /HPF (None Seen)
[2020-11-18 20:50] LABS: URINE RBC 1-2 Rare /HPF (NONE SEEN)
[2020-11-18 21:03] VITALS: BP 103/47
--- NOTE | 2020-11-18 22:08 | NUR ---
HAND OFF SENT TO ICU AT THIS TIME
[2020-11-19] VITALS (31 sets, daily range): BP systolic 106–193; BP diastolic 49–89
[2020-11-19 06:27] LABS: ABSOLUTE NEUTROPHILS 6.3 thou/uL (1.4-8.2); BASOPHILS 0.8 % (0.0-2.0); EOSINOPHILS 1.7 % (0.0-3.0); HEMATOCRIT 32.8 % (37.0-47.0); HEMOGLOBIN 10.2 gm/dL (12.0-15.0); LYMPHOCYTES 10.5 % (24.0-44.0); MCH 27.8 pg (26.0-34.0); MCHC 31.2 g/dL (28.0-37.0); MCV 89.2 fL (80.0-100.0); MONOCYTES 9.6 % (1.0-8.0); POLYS 77.4 % (36.0-66.0); RBC 3.68 mil/uL (4.20-5.00); RDW 16.4 % (10.5-14.5); WBC 8.2 thou/uL (4.0-11.0)
[2020-11-19 06:41] LABS: ALBUMIN 1.6 g/dL (3.4-5.0); CALCIUM 8.5 mg/dL (8.5-10.1); MAGNESIUM 1.7 mg/dL (1.8-2.4); PHOSPHORUS 5.4 mg/dL (2.6-4.7); PLATELET COUNT 361 thou/uL (150-400); POTASSIUM 4.8 mmol/L (3.5-5.1)
[2020-11-19 06:42] LABS: CREATININE 5.5 mg/dL (0.6-1.0)
--- NOTE | 2020-11-19 14:01 | NUR ---
2 RN'S TREATED PT'S HEAD WITH ANTI-LICE SHAMPOO. HAIR WAS COMBED WITH SPECIAL COMB. UNDERNEATH TREATED HOWEVER VERY MATTED TO BACK OF HEAD AND UNABLE TO GET LARGE SECTION OF UNDERNEATH PART OF HAIR COMBED THROUGH. PT MAY NEED SECOND TREATMENT IF EGGS STILL REMAIN. RN ONLY OBSERVED 2 LOUSE AND A MODERATE AMOUNT OF EGGS.
--- NOTE | 2020-11-19 16:16 | NUR ---
Chart review. Discussed during los and am unite rounds. Isolation for lice. DX Acute renal failure. Patient was just dc home with kelechi last week. Last admit was encouraged to go skilled rehab and she refused facilities. Francis She lives at home in mobile home with her 2 son, older son works outside home 6-5 and his younger brother is home and i tell him if need anything to call home health. ever since other brother , and the put her in wheelchair she has not walked. Have ramp, wheelchair, lift recliner chair. She is afraid she will end up in a shelter. We can't take care of her at home, but she will say we can per son Tobi. Cm tried calling pt. in room, unable to leave message r/t mailbox is full. Therapy will need to eval. Will cont. following as needed for dc needs. No anticipated dc over the weekend.
--- NOTE | 2020-11-19 19:14 | NUR ---
PICTURES TAKEN OF PT'S WOUNDS AND PLACED ON CHART. WOUND CARE ORDERS RECEIVED AND SUPPLIES IN ROOM. RN HELD OFF ON WRAPPING LEGS UNTIL NEW ORDER OF VENOUS DOPPLER BLE IS COMPLETED. HEELS OFF BED ON PILLOWS AT THIS TIME. RN SPOKE TO PT'S SON AND GAVE HIM PT UPDATE VIA PHONE.
--- NOTE | 2020-11-19 22:00 | NUR ---
PATIENT TRANSFERRED TO . REMAINS IN ISOLATION. BP CONTROLLED, NO NEED FOR LEVOPHED GTT. ALL BELONGINGS SENT.
[2020-11-20 03:30] VITALS: BP 149/61
--- NOTE | 2020-11-20 04:50 | NUR ---
ASSUMED CARE OF PT DROM ICU AT 2200HRS. PT IS AOX4 AND LETS NEEDS BE KNOWN. FALL PRECAUTION IN PLACE. PT REPORTED GENERALIZED PAIN THAT WAS POORLY CONTROLLED WITH AVAILABLE PRNS. CESAR IN PLACE AND PATIENT. PT SLEPT VERY LITTLE THIS SHIFT. WILL CONTINUE TO MONITOR.
[2020-11-20 06:12] LABS: ALBUMIN 1.6 g/dL (3.4-5.0); CALCIUM 8.5 mg/dL (8.5-10.1); PHOSPHORUS 2.4 mg/dL (2.5-4.9)
[2020-11-20 06:13] LABS: CREATININE 2.4 mg/dL (0.6-1.0); POTASSIUM 3.5 mmol/L (3.5-5.1)
[2020-11-20 08:50] VITALS: BP 179/77
[2020-11-20 15:10] VITALS: BP 169/78
--- NOTE | 2020-11-20 17:10 | NUR ---
ASSUMED CARE OF PATIENT AT SHIFT CHANGE. ASSESSMENT CHARTED. MEDICATIONS ADMINISTERED PER EMAR. BP ELEVATED; RELATED TO PAIN & ANXIETY. PATIENT IS A&0X3-4 WITH SOME NOTED FORGETFULNESS AND CONFUSION THROUGHOUT SHIFT. PATIENT WAS SEEN BY PT/OT BUT DID NOT PARTICIPATE FULLY DUE TO UNCONTROLLED PAIN. PATIENT RECIEVED A DOPPLER ULTRASOUND OF LE & WAS REPEATEDLY TOLD LEGS WOULD BE REDRESSED HOWVWEVER PATIENT REFUSED DUE TO PAIN. PATIENT NOW ABLE TO RECIEVE PRN PAIN MEDICATION Q4 HOURS BUT STILL VOICING NO RELIEF. PATIENT STATING SHE IS "MISERABLE" AND "CAN'T GET COMFORTABLE" EVEN AFTER NURSING STAFF REPEATEDLY REPOSITIONS PATIENT. WHEN PATIENT CLEANED UP; HEMMORHOID BECAME IRRITATED AND PATIENT BEGAN TO BLEED A SMALL AMOUNT WITH STOOL; THIS CAUSED PATIENT TO BECOME MORE ANXIOUS. RENAL US ALSO COMPLETED THIS DAY; SEE NOTES. SON UPDATED ON PATIENT STATUS; REPLACING FLUIDS AND CHECKING KIDNEY FUNCTION. ON IV ABX. PATIENT CONSTANTLY CRYING AND MOANING DUE TO PAIN AND DISCOMFORT. CONTINUED CONTACT PRECAUTIONS. FREQUENT MONITORING CONTINUED FOR THIS PATIENT
[2020-11-20 20:37] VITALS: BP 157/79
[2020-11-21] VITALS (7 sets, daily range): BP systolic 146–230; BP diastolic 73–90
--- NOTE | 2020-11-21 05:01 | NUR ---
ASSUEMD CARE OF PT AT SHIFT CHANGE. PT IS ALERT BUT WAS CONFUSED THIS SHIFT. FALL PRECAUTION IN PLACE. PT APPEARED TO BE HALLUCINATING AND WAS SEEING BUGS IN THE ROOM. PT REPORTED GENERALIZED PAIN, PRN PAIN MEDS WERE NOT EFFECTIVE. CESAR N PLACE AND PATIENT. PT SLEPT PART OF THE SHIFT. WILL CONTINUE TO MONITOR.
--- NOTE | 2020-11-21 09:37 | NUR ---
2165 DIVYA AWARE OF PATIENT BLOOD PRESSURE AND OTHER VITALS, RN WILL NOTIFY IF LABETALOL DOESN'T IMPROVE. RN PAGED DIVYA AT [phone] FOR BLOOD PRESSURE NOT IMPROVING. RN REPAGED AT [phone]
[2020-11-21 10:37] LABS: CALCIUM 7.1 mg/dL (8.5-10.1); CREATININE 0.9 mg/dL (0.6-1.0)
[2020-11-21 10:39] LABS: POTASSIUM 2.8 mmol/L (3.5-5.1)
--- NOTE | 2020-11-21 11:16 | NUR ---
[address] STOKES OF PATIENT POTASSIUM OF 2.8. ORDERS RECEIVED TO GIVE 60MEQ BY MOUTH NOW.
--- NOTE | 2020-11-21 16:42 | NUR ---
PATIENT ALERT AND ORINTED TO SELF, ON ROOM AIR, BLOOD PRESSURE ELEVATED THIS MORNING AND TREATED, BEDREST, VITAL SIGNS HAVE BEEN STABLE AFTER MEDICATIONS, AND AFBRIELE. CALL LIGHT WITH IN REACH, WILL CONTINUE TO MONITOR. BED ALARM ON.
[2020-11-22 04:25] VITALS: BP 182/75
--- NOTE | 2020-11-22 07:18 | NUR ---
ASSUMED CARE OF PT AT SHIFT CHANGE. PT WAS ALERT BUT ONLY TO ORIENTED TO PERSON. FALL PRECAUTION IN PLACE. BP ELEVATED; PRNS PROVIDED AND NEW ORDERS RECEIVED. PT WAS IMPULSIVE, YELLING AND REMOVING EQUIPMENT. ATIVAN ADMINISTERED WITH LITTLE SUCCESS. PT SLEPT VERY LITTLE THIS SHIFT. CESAR IN PLACE AND PATIENT. PT REFUSES PERFO BOOTS AND OTHER CARES AT TIMES. REPORT GIVEN TO ONCOMING RN.
--- NOTE | 2020-11-22 16:33 | NUR ---
CM CALLED [facility] WHO PT HAD BEEN ON SERVICE WITH ASTRONAUTICAL ENGINEER. CM SPOKE WITH NURSE TALAMANTES. SHE INDICATED THAT SHE HAD TO CHECK WITH HER DIRECTOR TO SEE IT THEY WOULD BE ABLE TO ACCEPT HER BACK IF SHE REFUSED SKILLED. CM MET WITH PT AT BEDSIDE THIS DAY. CM INDICATED THAT ABOVE AND ASKED IF PT WAS RECEPTIVE TO SHORT TERM POST ACUTE CARE STAY UPON DC THIS TIME. PT INDICATED CM COULD SEND REFERRAL TO [facility] FOR [facility]VIEW. CM FAXED REFERRAL. CM CALLED SANA IN ADMISSIONS THERE AND LEFT A VM. CM FOLLOWING REGARDING DC PLANNING.
[2020-11-22 17:19] LABS: CALCIUM 8.3 mg/dL (8.5-10.1); CREATININE 0.9 mg/dL (0.6-1.0); POTASSIUM 3.5 mmol/L (3.5-5.1)
--- NOTE | 2020-11-22 17:48 | NUR ---
VAT CONSULTED. RIGHT UPPER CEPHALIC MIDLINE PLACED, TRIMMED 14CM WITH 0CM EXTERNAL. FLUSHES BRISKLY AND RETURNS BLOOD. RELEASED FOR USE, PER VASCULAR ACCESS POLICY.
[2020-11-22 20:05] VITALS: BP 149/71
--- NOTE | 2020-11-22 20:19 | NUR ---
PATIENT CONTINUES TO BE RESTLESS, CRYING, VOICING DISCOMFORT AND SEEMINGLY MORE CONFUSED. PRN PAIN ANALGESIC ADMINSTERED WITH NO RELIEF. DR. DODSON CONSULTED FOR SEVERE ANXIETY. CM SPOKE W PATIENT TO TRY AND FIND PLACEMENT. NEW IV ACCESS ON R UP FOR ABX. FREQUENT CHECKS ON PATIENT. ENDORSED TO JERED RN
[2020-11-23 07:32] VITALS: BP 149/70
--- NOTE | 2020-11-23 08:30 | NUR ---
Assumed pt care at 1900. A/OX3,with intermittent periods of confusiona nd hallucination noted but able to voice needs at times. VSS. C/o generalized pain medicated per EMAR with relief reported. Incontinent of bowels, howard in place patent with yellow cloudy urine. Excoriation on pannus/breasts/perirectal area. SR on telemetry.
--- NOTE | 2020-11-23 12:20 | HC ---
[facility] [place] [address] CONSULTATION Name: LUI MITCHELL Room #: 459- ADM IN M.R.#: [id number] Admission: 11/18/20 Attend Phys: Karthikeyan Sheikh MD Discharge: Date of : 56 Report #: [id number] THIS REPORT FOR: cc: Sean Mello MD, Richard C. MD Stephens, Thad A. MD ~ DATE OF SERVICE: 11/19/2020 WOUND CARE CONSULTATION PERSONAL PHYSICIAN: Dr. Sean Mello CHIEF COMPLAINT: Lower extremity lymphedema. HISTORY OF PRESENT ILLNESS: This is a 60-year-old morbidly obese white female who we have taken care of in the past for chronic lower extremity edema, who is now back in acute renal failure. The patient also has a previous history of stage III pressure ulcer in bilateral gluteal regions. Nursing staff deny any other new ulcerations. 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 CURRENT MEDICATIONS: Multiple, I reviewed the patient's medication list. DRUG ALLERGIES: SULFA. SOCIAL HISTORY: The patient does not smoke or drink alcohol. FAMILY HISTORY: Not pertinent to current medical condition. REVIEW OF SYSTEMS: CONSTITUTIONAL: The patient denies fevers or chills. NEUROLOGIC: The patient complains of overall generalized weakness, but no isolated weakness in arms or legs. EYES: No complaints. EARS, NOSE AND THROAT: No complaints. CARDIAC: The patient denies chest pain, palpitations. Has chronic lower extremity edema. RESPIRATORY: The patient has mild shortness of breath with associated cough. GASTROINTESTINAL: The patient denies nausea, vomiting, or abdominal pain. GENITOURINARY: The patient denies urgency or frequency. MUSCULOSKELETAL: The patient has no complaints. SKIN: The patient has chronic ulcerations to the bilateral gluteal region as well as fungal rash underneath each breast and hyperkeratosis bilateral lower [address] [address] CONSULTATION Name: LUI MITCHELL Room #: 459-P [facility] IN ..#: [id number] Admission: 11/18/20 Attend Phys: Karthikeyan Sheikh MD Discharge: Date of : 56 Report #: [id number] extremities. PHYSICAL EXAMINATION: VITAL SIGNS: Stable. The patient is afebrile. GENERAL: This is a morbidly obese white female who is in no acute distress. HEENT: Normocephalic, atraumatic. Mucous membranes are dry. Pupils are round. Sclerae white. NECK: Without JVD. LUNGS: Slight diminished breath sounds heard throughout. HEART: Regular. ABDOMEN: Obese, soft, nontender. SKIN: Underneath each breast and the pannus, there is a fungal rash, which is moderately erythematous, but no actual excoriation or breakdown. EXTREMITIES: The patient moves all extremities without difficulty. The patient has significant hyperkeratosis bilateral lower extremities, but no actual open ulcers. In the gluteal region, there are bilateral stage III decubitus ulcers, which are clean and granulating. NEUROLOGIC: Cranial nerves II-XII grossly intact. Motor and sensory grossly intact. LABORATORY DATA: White count 8.2, hemoglobin 10.2. Albumin 1.6. IMPRESSION: 1. Chronic bilateral lower extremity lymphedema with hyperkeratosis, but no open ulcerations. 2. Stage III decubitus ulcers, bilateral gluteal regions. 3. Fungal rash underneath bilateral breasts and pannus. 4. Diabetes mellitus. 5. Morbid obesity. 6. Generalized debility with weakness. 7. Acute on chronic kidney failure. 8. Severe protein-calorie malnutrition with albumin 2.2. PLAN: We will start AmLactin lotion to the bilateral lower extremities, cover this with Kerlix and Sai total knees daily, with elevation as much as possible. We will have left heel protectors on patient at all times for protection. We will start bordered foam to the gluteal regions daily and p.r.n. We will put the patient on low air loss surface and have her turned every 2 hours. We will start ____ dry underneath each breast and underneath the pannus. We will make sure we have PT, OT evaluate the patient with assistance [place] [address] CONSULTATION Name: LUI MITCHELL Room #: 459-P ADM IN M.R.#: [id number] Admission: 11/18/20 Attend Phys: Karthikeyan Sheikh MD Discharge: Date of : 56 Report #: [id number] make sure we maximize the patient's oral protein supplementation for healing. We will continue all other current medications. Appreciate ability to consult. <ELECTRONICALLY SIGNED> By: Erick Fonseca MD 11/23/20 1220 1159 [id number] Erick Fonseca MD /nt
[2020-11-23 15:24] VITALS: BP 173/85
--- NOTE | 2020-11-23 15:43 | NUR ---
MAYRA REACHED OUT TO SANA AT [facility] THIS AM AND SHE INDCIATED THAT THEY HAVE COVID IN HOUSE AND AREN'T TAKING NEW ADMITS AT THIS TIME. SHE STATED THAT THEY ARE ALSO HAVING THEIR FERERAL INSPECTION AT THE MOMENT. MAYRA NOTIFIED PT OF THIS AND ASKED IF CM COULD SEND REFERRAL TO [facility] THEY HAD ACCEPTED HER MEDICLALY PREVIOUSLY... PT INDICATED SHE WAS IS TOO MUCH PAIN TO THINK ABOUT DC AND NEED WORK ON FEELING BETTER BEFORE SHE MADE A DECISION ABOUT DISCHARGE. CM FOLLOWING REGARDING DC PLANNING.
--- NOTE | 2020-11-23 18:25 | NUR ---
PT IS A&0*4, ROOM AIR, REPORT PAIN ALL OVER THE BODY, NSR ON TELE WITH 90 HR. PT NEED MAX ASSIST TO TURN Q2, CESAR IS INTACT, 2 SOFT BM TODAY. BED ALARM IS ON. PT REPORT BAD NAUSEA IN THE MORNING AND IV ZOFRAN GIVEN, NON-MEDICAL INTERVENTION APPLIED AND PT REPORT PARTIAL RELIEFED IN THE AFTERNOON. PT REFUSED INSULIN AT NOON DUE TO REFUSED TO EAT. BLOOD GLUCOSE LEVEL STILL HIGH BEFORE DINNER AND RE-EDUCATED PT FOR INSULIN AND GIVE TO PT BEFORE DINNER. WILL KEEP MONITOR PT'SAFETY.
[2020-11-23 20:24] VITALS: BP 159/71
--- NOTE | 2020-11-24 05:26 | NUR ---
Assumed pt care at 1900. A/OX3 with intermittent confusion noted,screams/tanvir on and off. Able to voice needs at times. VSS. C/o pain allover,medicated per EMAR with relief reported. Incontinent of bowels this shift,pericare done as needed and Zguard applied prn. Fernandez patednt with yellow urine,Po intake encouraged but pt hesitant to. Excoriation persists under pannus/breasts/armpits,cleansed and interdry fabric in place. Fall precautions in place,will continue to monitor pt.
[2020-11-24 07:29] VITALS: BP 151/94
[2020-11-24 11:00] LABS: CALCIUM 8.1 mg/dL (8.5-10.1); CREATININE 0.9 mg/dL (0.6-1.0); POTASSIUM 3.1 mmol/L (3.5-5.1)
--- NOTE | 2020-11-24 12:16 | NUR ---
CM MET WITH PT AND PHYSICIAN AT BEDSIDE THIS DAY. IT WAS CONVEYED THAT PT IS MEDICALLY STABLE TO DC FROM HOSPITAL AND THAT SHORT TERM SKILLED REHAB STAY IS THE RECOMMENDATION. CM WAITED AND SPOKE WITH PT AND SHE ISN'T RECEPTIVE TO CM SENDING REGFERRALS ANYWHERE FOR REVIEW INDICATING THAT SHE IS GOING TO REACH OUT TO HER SONS TO SET SOMETHING UP... PT'S PHONE IS BROKEN CM CALLED PT'S SON DEWEY AND HE WANTS MOM TO GO TO REHAB AND LUPE DOES OLDEST SON NICCI MONTE. THEY BOTH WORK AND YOUNGEST SON LESVIA WOULD BE CARING FOR MOM BUT CAN'T. CM EXPRESSED UNDERSTANDING. CM INDICATED THAT IF PT REFUSES SKILLED THAT SHE IS COMPETANT SHE WOULD BE DC'D HOME WITH HOME HEALTH AND HOTLINED. HE EXPRESSED UNDERSTANDING. CM FAXED REFERRAL TO [facility] AND TO [facility] WON'T TAKE PT BACK.
--- NOTE | 2020-11-24 13:59 | NUR ---
ASSUMED CARE OF PATIENT AT SHIFT CHANGE. ASSESSMENT CHARTED. MEDS ADMINISTERED PER EMAR. BP ELEVATED BUT CONTROLLED W MEDICATION. PATIENT IS A&OX2-3 BUT IS GOING IN AND OUT OF CONFUSION. PATIENT STILL APPEARING TO HAVE SOME HALLUCINATIONS BUT IS MORE ABLE TO BE DIRECTED THIS SHIFT. PATIENT DEEMED MEDICALLY STABLE TO DISCHARGE; CM IS DILIGENTLY TRYING TO WORK WITH PATIENT TO FIND PLACEMENT. PATIENT BEING REPOSITIONED NEEDED; PRN PAIN MEDS ADMINISTERED NEEDED. NO NEW ISSUES OR COMPLAINTS. CONTINUING TO MONITOR PATIENT AND AWAITING UPDATES.
--- NOTE | 2020-11-24 15:59 | NUR ---
THIS RN AGREES WITH THE PLATE PAINTER ASSESSMENT.
[2020-11-24 20:01] VITALS: BP 133/57
--- NOTE | 2020-11-25 04:51 | NUR ---
Assumed pt care at 1900. A/OX3 with visual hallucinations and confusion noted on and off;able to voice needs at times. VSS.C/o pain allover medicated per EMAR with relief reported. Incontinent of bowels this shift;hemorrhoid cream applied as ordered as well as Zguard to buttocks. Fernandez in place with cloudy yellow urine,PO intake encouraged but hesitant to. SR on telemetry. Fall precautions in place,will continue to monitor pt.
[2020-11-25 07:48] VITALS: BP 148/73
--- NOTE | 2020-11-25 11:21 | NUR ---
PT HAD INDICATED SHE [place] [facility] [place] CM FA[place] [facility] AND THEY DECLINED ADMISSION. CM SPOKE WITH LIAISON CAT AT [facility] AND SHE AND [facility] ARE REVIEWING FOR POSSIBLE ADMISSION. CM FOLLOWING WITH [facility] TO [facility] [facility].
[2020-11-25] MEDS ORDERED: CLONIDINE HCL0.3 M3 PO (14:06)
[2020-11-25] MEDS ORDERED: FLOMAX0.4 MG PO (14:06)
[2020-11-25] MEDS ORDERED: CARVEDILOL12.5 MG PO (14:06)
[2020-11-25] MEDS ORDERED: HEMORRHOIDAL OI57 GM TOP (14:06)
[2020-11-25] MEDS ORDERED: AMMONIUM LACTA226 GM TOP (14:06)
[2020-11-25] MEDS ORDERED: LEVOTHYROXINE88 MCG PO (14:06)
[2020-11-25] MEDS ORDERED: AMLODIPINE BESY10 MG PO (14:06)
[2020-11-25] MEDS ORDERED: CEFUROXIME500 MG PO (14:06)
[2020-11-25] MEDS ORDERED: LISINOPRIL10 MG PO (14:06)
[2020-11-25 15:20] VITALS: BP 150/73
--- NOTE | 2020-11-25 15:22 | NUR ---
ASSSUMED CARE OF PATIENT AT SHIFT CHANGE. ASSESSMENT CHARTED. MEDICATIONS ADMINISTERED PER EMAR. VSS. PATIENT IS STILL APPEARING CONFUSED BUT LOOKS DROWSY TODAY. LESS C/O PAIN BUT WANTING TO "USE LITTLE GIRLS ROOM". COMPLATE BED BATH GIVEN THIS DAY; ZGUARD APPLIED TO BUTTOCK/COCCYX AREA W PREPARATION H. REFUSED WOUND CARE FOR LEGS AND REFUSING TO EAT. CM WORKING FOR PLACEMENT; HOPEFUL TO D/C THIS DAY. CESAR IN PLACE; APPEARS TO BE RETAINING. Q2 TURNS; ENCOURAGING SIPS OF WATER. WILL CONTINUE TO MONITOR AND FOLLOW PLAN OF CARE UNTIL DISCHARGE
[2020-11-25 15:48] VITALS: BP 150/73
[2020-11-25] MEDS ORDERED: CEFEPIME 1 GM VI1 G2 INJECTION (17:47)
== END 2020-11-25 19:08 | DRG 871 ==
LOC: ER 14:15 → ICU 17:52 → EROBS 17:52 → ICU 11-19 04:57 → 4W 11-19 21:22
PROVIDERS: Hospitalist; Nurse Practitioner; Physician Assistant; ADMIT Internal Medicine; ATTEND Internal Medicine
PROC: 05HD33Z Insertion of Infusion Device into Right Cephalic Vein, Percutaneous Approach (ICD-10-PCS; principal; 2020-11-22)
DX: A41.59 Other Gram-negative sepsis (principal); L89.323 Pressure ulcer of left buttock, stage 3; L89.313 Pressure ulcer of right buttock, stage 3; G93.41 Metabolic encephalopathy; E43 Unspecified severe protein-calorie malnutrition; N17.9 Acute kidney failure, unspecified; N30.00 Acute cystitis without hematuria; Z16.24 Resistance to multiple antibiotics; E87.2 Acidosis; Z68.42 Body mass index [BMI] 45.0-49.9, adult; Q60.0 Renal agenesis, unilateral; E11.40 Type 2 diabetes mellitus with diabetic neuropathy, unspecified; M19.90 Unspecified osteoarthritis, unspecified site; R65.20 Severe sepsis without septic shock; E66.01 Morbid (severe) obesity due to excess calories; R33.9 Retention of urine, unspecified; E03.9 Hypothyroidism, unspecified; S81.802A Unspecified open wound, left lower leg, initial encounter; S81.801A Unspecified open wound, right lower leg, initial encounter; N18.9 Chronic kidney disease, unspecified; L85.9 Epidermal thickening, unspecified; R53.81 Other malaise; E11.649 Type 2 diabetes mellitus with hypoglycemia without coma; L30.8 Other specified dermatitis; I87.8 Other specified disorders of veins; F41.9 Anxiety disorder, unspecified; E87.6 Hypokalemia; Z20.822 Contact with and (suspected) exposure to COVID-19; T38.3X1A Poisoning by insulin and oral hypoglycemic [antidiabetic] drugs, accidental (unintentional), initial encounter; I12.9 Hypertensive chronic kidney disease with stage 1 through stage 4 chronic kidney disease, or unspecified chronic kidney disease; E11.22 Type 2 diabetes mellitus with diabetic chronic kidney disease; D64.9 Anemia, unspecified; E87.5 Hyperkalemia; Z79.82 Long term (current) use of aspirin; Z90.49 Acquired absence of other specified parts of digestive tract; Z88.2 Allergy status to sulfonamides; Z88.8 Allergy status to other drugs, medicaments and biological substances; Z88.6 Allergy status to analgesic agent; Z91.040 Latex allergy status; Z85.528 Personal history of other malignant neoplasm of kidney; Z90.5 Acquired absence of kidney; X58.XXXA Exposure to other specified factors, initial encounter; Y93.89 Activity, other specified; Y92.89 Other specified places as the place of occurrence of the external cause; Y99.8 Other external cause status; Z79.899 Other long term (current) drug therapy; Z83.3 Family history of diabetes mellitus; Z82.49 Family history of ischemic heart disease and other diseases of the circulatory system
CPT/HCPCS: 10045; 10047; 27000